=== PATIENT | female | born 1995 | race Hispanic/Latino ===

== ENCOUNTER 2020-11-16 21:23 | Emergency (ER) | payer BC ==
[~2020-11-16] VITALS: Ht 162.6 cm; Wt 73.0 kg
[~2020-11-16 21:23] MED LIST: AMOXICILLIN500 MG OR; CORTISPORIN OTI10 ML AD
[2020-11-16 22:00] VITALS: BP 129/67
[2020-11-16 22:36] LABS: URINE BILIRUBIN - DIPSTICK NEGATIVE (NEGATIVE); URINE BLOOD DIPSTICK LARGE (NEGATIVE); URINE COLOR YELLOW; URINE GLUCOSE - DIPSTICK NEGATIVE (NEGATIVE); URINE KETONE TRACE mg/dL (NEGATIVE); URINE LEUK ESTERASE MODERATE (Negative); URINE NITRITE - DIPSTICK NEGATIVE (Negative); URINE PROTEIN - DIPSTICK 100 mg/dL (NEG-TRACE); URINE SPECIFIC GRAVITY 1.025
[2020-11-16 22:37] LABS: URINE CLARITY CLOUDY; URINE RBC 50-100 RBC/hpf (0-5); URINE WBC 20-50 WBC/hpf (0-5)
[2020-11-16 22:38] LABS: URINE SQUAMOUS EPITHELIAL CELL MODERATE EPI/hpf (0-FEW)
[2020-11-16] MEDS ORDERED: DOXYCYCL HYC100 MG PO (22:44)
[2020-11-17] MEDS ORDERED: METFORMIN500 M2 PO (13:15)
[2020-11-17] MEDS ORDERED: KEFLEX500 M1 PO (13:30)
[2020-11-17] MEDS ORDERED: PYRIDIUM200 MG PO (13:30)
== END 2020-11-16 23:16 | disposition home or self-care (01) | DRG 607 ==
LOC: ED 21:23
PROVIDERS: Emergency Medicine
DX: L73.9 Follicular disorder, unspecified (principal); N39.0 Urinary tract infection, site not specified

== ENCOUNTER 2020-11-17 11:54 | Emergency (ER) | payer BC ==
[~2020-11-17] VITALS: Ht 162.6 cm; Wt 63.0 kg
[~2020-11-17 11:54] MED LIST changes: +DOXYCYCL HYC100 MG PO
[2020-11-17] MEDS ORDERED: METFORMIN500 M2 PO (13:15)
[2020-11-17 13:19] VITALS: BP 125/70
[2020-11-17] MEDS ORDERED: KEFLEX500 M1 PO (13:30)
[2020-11-17] MEDS ORDERED: PYRIDIUM200 MG PO (13:30)
== END 2020-11-17 13:52 | disposition home or self-care (01) | DRG 690 ==
LOC: ED 11:54
DX: N39.0 Urinary tract infection, site not specified (principal)